=== PATIENT | female | born 2000 | race Caucasian/White ===

== ENCOUNTER → 2019-03-26 22:00 | Observation (INO) ==
[2019-03-26 17:21] LABS: Amphetamine Screen,Urine Negative ng/mL (Cutoff=1000); Barbiturate Screen,Urine Negative ng/mL (Cutoff=200); Benzodiazepines Screen,Urine Negative ng/mL (Cutoff=200); Cannabinoid Screen,Urine Positive ng/mL (Cutoff = 50); Cocaine Screen,Urine Negative ng/mL (Cutoff= 300); Opiate Screen,Urine Negative ng/mL (Cutoff=300); Phencyclidine Screen,Urine Negative ng/mL (Cutoff=25)
[2019-03-26 17:45] LABS: Bilirubin,Urine Negative (Negative); Blood,Urine Negative (Negative); Clarity,Urine Clear (Clear); Color,Urine Yellow (Yellow); Glucose,Urine (UA) Normal (Normal); Ketones,Urine 15 mg/dL (Negative); Leukocyte Esterase,Urine Small (Negative); Nitrite,Urine Negative (Negative); Protein,Urine Negative (Neg-Trace); Specific Gravity,Urine 1.027 (1.010-1.025); Urobilinogen,Urine Normal (Normal)
[2019-03-26 17:46] LABS: Bacteria,Urine Moderate per hpf (None-Few); Squamous Epithelial Cell,Urine Moderate per lpf (None-Few)
[2019-03-26 20:21] LABS: Basophils % 0.1 %; Eosinophils % 0.1 %; Hematocrit 34.6 % (35.3-44.9); Hemoglobin 11.7 g/dL (11.5-15.4); Immature Granulocytes % 0.9 % (0-4); Lymphocytes # 2.9 K/mcL (0.6-4.6); Lymphocytes % 20.4 %; Mean Corpuscular HGB Conc 33.8 g/dL (31.6-35.5); Mean Corpuscular Hemoglobin 31.1 pg (28.0-33.3); Mean Platelet Volume 11.6 fL (9.4-12.4); Monocytes # 0.8 K/mcL (0.0-1.3); Monocytes % 5.8 %; Neutrophils # 10.2 K/mcL (1.6-8.9); Platelet Count 171 K/mcL (140-400); Red Blood Count 3.76 M/mcL (3.82-4.97); Red Cell Distribution Width 12.6 % (11.5-14.5); Segmented Neutrophils % 72.7 %; White Blood Count 14.1 K/mcL (4.3-11.1)
[~2019-03-26 22:00] MED LIST: Acetaminophen 325 MG TABLET PO ONE; Ringers Solution, Lactated 1,000 ML IVC ONE
--- NOTE | 2019-03-26 22:39 | Discharge Summary ---
Date of Encounter: 03/26/19 Time of Encounter: 23:03 - Discharge Diagnosis (1) 35 weeks gestation of Priority: Primary Status: Acute Comments: Admit to observation for complaint of abdominal pain, low back pain. (2) Abdominal pain affecting Priority: Secondary Status: Acute Comments: Continuous and contraction monitoring. (3) NST (non-stress test) reactive Priority: Secondary Status: Acute Comments: FHR 120bpm, moderate variability, +15x15 accels. Fetus extremely active, periods of broken tracing due to movement. - Discharge Medications Allergies/Adverse Reactions: Allergy/AdvReac Type Severity Reaction Status Date / Time No Known Allergies Allergy Verified 03/26/19 16:20 Data Procedures and tests throughout hospitalization: Laboratory Tests 03/26/19 03/26/19 03/26/19 16:07 16:20 19:23 WBC 14.1 H RBC 3.76 L Hgb 11.7 Hct 34.6 L MCV 92.0 MCH 31.1 MCHC 33.8 RDW 12.6 Plt Count 171 MPV 11.6 Immature Gran % 0.9 Seg Neutrophils % 72.7 Lymphocytes % 20.4 Monocytes % 5.8 Eosinophils % 0.1 Basophils % 0.1 Neutrophils # 10.2 H Lymphocytes # 2.9 Monocytes # 0.8 Eosinophils # 0.0 Basophils # 0.0 Urine Color Yellow Urine Clarity Clear Urine pH 6.0 Ur Specific [place] 1.027 H Urine Protein Negative Urine Glucose (UA) Normal Urine Ketones 15 H Urine Blood Negative Urine Nitrite Negative Urine Bilirubin Negative Urine Urobilinogen Normal Ur Leukocyte Esterase Small H Urine Microscopic WBC 5-15 H Ur Squamous Epith Cells Moderate H Urine Bacteria Moderate H Ur Culture Indicated? YES A Urine Opiates Screen Negative Ur Buprenorphine Scrn Negative Ur Barbiturates Screen Negative Ur Phencyclidine Scrn Negative Ur Amphetamines Screen Negative U Benzodiazepines Scrn Negative Urine Cocaine Screen Negative U Marijuana (THC) Screen Positive H Ur Drug Screen Interp See Below Labs on day of discharge: Labs from last 24 hours 03/26/19 03/26/19 03/26/19 19:23 16:20 16:07 WBC 14.1 H RBC 3.76 L Hgb 11.7 Hct 34.6 L MCV 92.0 MCH 31.1 MCHC 33.8 RDW 12.6 Plt Count 171 MPV 11.6 Immature Gran % 0.9 Seg Neutrophils % 72.7 Lymphocytes % 20.4 Monocytes % 5.8 Eosinophils % 0.1 Basophils % 0.1 Neutrophils # 10.2 H Lymphocytes # 2.9 Monocytes # 0.8 Eosinophils # 0.0 Basophils # 0.0 Urine Color Yellow Urine Clarity Clear Urine pH 6.0 Ur Specific [place] 1.027 H Urine Protein Negative Urine Glucose (UA) Normal Urine Ketones 15 H Urine Blood Negative Urine Nitrite Negative Urine Bilirubin Negative Urine Urobilinogen Normal Ur Leukocyte Esterase Small H Urine Microscopic WBC 5-15 H Ur Squamous Epith Cells Moderate H Urine Bacteria Moderate H Ur Culture Indicated? YES A Urine Opiates Screen Negative Ur Buprenorphine Scrn Negative Ur Barbiturates Screen Negative Ur Phencyclidine Scrn Negative Ur Amphetamines Screen Negative U Benzodiazepines Scrn Negative Urine Cocaine Screen Negative U Marijuana (THC) Screen Positive H Ur Drug Screen Interp See Below Preliminary micro results at discharge 03/26/19 16:20 Urine Culture - Preliminary Urine,Clean Catch Culture is incubating. Date of admission: 03/26/19 16:01 Discharging clinician: Didi Norris Anticipated date of discharge: 03/26/19 - Patient Status Disposition: Home, Self-Care Condition: Good Functional capacity at discharge: independent ambulation Overall status at discharge: patient is progressing back to baseline - Discharge Instructions Additional Instructions: LABOR AND DELIVERY DISCHARGE INSTRUCTIONS Signs and Symptoms to be Reported to your Doctor Immediately: * Sudden gush, continuous or intermittent lead of fluid from vagina (note the time of gush and color of fluid) * Onset of bright red vaginal bleeding with or without pain (if you had a vaginal exam during this visit you may notice some dark red spotting. This is normal.) * Contractions that are 5 minutes apart (from the beginning of one contraction to the beginning of the next) and last 45-60 seonds; contractions that you can no longer walk, talk or laugh through. * A change in the baby's activity. This could be an increase or decrease in activity. * Severe headache which does not go away with tylenol. * Sudden swelling in the face, hands, arms and/or legs. * Upper abdominal pain - sometimes associated with heartburn or nausea and is not relieved by Maalox, Mylanta or Tums. * Kick Counts __ One hour after a meal, lay down on one side in a quiet place. Count the number of time the baby moves during an hour. If less than 6 movements, notify your physician Diet: *Force fluids, 8 to 10 tall glasses of fluid per day - may include popsicles and jello *Limit caffeine - this includes chocolate, coffee, tea, any soft drink containing such as all reynaldo, Waldemar Yellow and Mountain Dew - Diet and Activity Activity: resume usual activities as tolerated Diet: regular diet Hospital Course ARBITRATOR Hospital course: Patient arrived with complaints of possible contractions and lower abdominal pain. She reports positive movement, denies vaginal bleeding and fluid leakage. She denies dysuria but does complain of frequency. There is slight CVA tenderness on the left. UA returns with Spec [place] of 1.027, 5-15 WBC. Due to patient symptoms, CBC collected. Returned with WBC count of 14.1, otherwise normal. Slightly elevated temp of 100.4 was noted during stay that resolved with Tylenol and remained normal >4 hrs after Tylenol dose. Patient is to follow up with OB provider as scheduled next week as scheduled for routine care. She is instructed on labor precautions and should return or call if she spikes a temp. Time Attestation: Total time spent providing and/or coordinating discharge services: Time Spent: Less than 30 minutes Exam - Constitutional General appearance IM: A&O X 3, no acute distress - Respiratory Respiratory exam: Present: CTAB. Absent: respiratory distress - Cardiovascular Cardiovascular exam IM: Present: RRR, +S1, +S2. Absent: irregular rhythm - GI/Abdominal GI/Abdominal exam IM: normal bowel sounds, soft - Rectal Rectal exam: deferred - Extremities Exam Extremities exam IM: Present: full ROM, normal capillary refill, normal inspection. Absent: calf tenderness - Neurological Exam Neurological exam: alert, normal gait, oriented X3 - VTE Reasons for not Prescribing Prophylaxis: Treatment not Indicated - Low risk for VTE
== END | disposition home or self-care (01) ==
LOC: 1NENULAB
PROVIDERS: ADMIT Advanced Practice Midwife; ATTEND Advanced Practice Midwife

== ENCOUNTER 2019-04-24 05:51 | Inpatient (IN) ==
[2019-04-24] MEDS ORDERED: miSOPROStol 25 MCG TABLET PO PRN (07:09)
[2019-04-24] MEDS ORDERED: Lidocaine 1% 20 ML MDV INFILT PRN (07:21)
[2019-04-24] MEDS ORDERED: *HR* Nalbuphine 10 MG/ML AMPUL IVP PRN (07:21)
[2019-04-24] MEDS ORDERED: Metoclopramide 10 MG/2 ML VIAL IVP PRN (07:21)
[2019-04-24] MEDS ORDERED: Naloxone 0.4 MG/ML INJ IVP PRN ×2 (07:21→10:34)
[2019-04-24] MEDS ORDERED: Famotidine 20 MG/2 ML VIAL IVP PRN (07:21)
[2019-04-24] MEDS ORDERED: Ringers Solution, Lactated 1,000 ML IVC SCH (07:30)
[2019-04-24 08:06] LABS: Basophils % 0.3 %; Eosinophils # 0.1 K/mcL (0.0-0.6); Eosinophils % 0.4 %; Hematocrit 36.1 % (35.3-44.9); Hemoglobin 12.4 g/dL (11.5-15.4); Immature Granulocytes % 0.5 % (0-4); Lymphocytes # 3.6 K/mcL (0.6-4.6); Mean Corpuscular HGB Conc 34.3 g/dL (31.6-35.5); Mean Corpuscular Hemoglobin 31.3 pg (28.0-33.3); Mean Corpuscular Volume 91.2 fL (83.0-100.0); Mean Platelet Volume 12.1 fL (9.4-12.4); Monocytes # 0.8 K/mcL (0.0-1.3); Monocytes % 5.6 %; Neutrophils # 9.3 K/mcL (1.6-8.9); Platelet Count 201 K/mcL (140-400); Red Blood Count 3.96 M/mcL (3.82-4.97); Red Cell Distribution Width 12.6 % (11.5-14.5); Segmented Neutrophils % 67.2 %; White Blood Count 13.9 K/mcL (4.3-11.1)
[2019-04-24 09:06] LABS: Amphetamine Screen,Urine Negative ng/mL (Cutoff=1000); Barbiturate Screen,Urine Negative ng/mL (Cutoff=200); Benzodiazepines Screen,Urine Negative ng/mL (Cutoff=200); Cannabinoid Screen,Urine Positive ng/mL (Cutoff = 50); Cocaine Screen,Urine Negative ng/mL (Cutoff= 300); Opiate Screen,Urine Negative ng/mL (Cutoff=300); Phencyclidine Screen,Urine Negative ng/mL (Cutoff=25)
--- NOTE | 2019-04-24 09:45 | OB/GYN History & Physical ---
Date of Encounter: 04/24/19 Time of Encounter: 09:42 Assessment and Plan (1) 39 weeks gestation of Current visit: Yes Status: Acute (2) Decreased movement Current visit: Yes Status: Acute Admit for IOL. Cytotec given. Plan for fishman balloon. Epidural if requested. Anticipate . Qualifiers: Fetus number: single or unspecified fetus Trimester: third trimester Qualified Code(s): O36.8130 - Decreased movements, third trimester, not applicable or unspecified History of Present Illness Chief complaint: IOL HPI: Ms. Hutchins is a 18 year old female presenting at 39w1d for elective IOL due to decreased movement and maternal discomfort. She denies any other complaints this am. This has been uncomplicated and she has had routine care with the midwives. A positive Rubella immune Serologies negative GBS negative. Past Med Surg Social Fam HX - Past Medical History Medical history: no medical history Psychiatric history: anxiety, depression - Past Surgical History Surgical History: non-contributory Additional surgical history: mole removed on neck - Social History Smoking Status: Former smoker Smokeless Tobacco Status: No Alcohol use: none Drug use: marijuana - Family History Maternal Grandmother Hx Family Cardiac Disorders: No Hx Family Respiratory Disorders: No Hx Family Cancer: No Hx Family GI Disorders: No Hx Family Endocrine Disorder: Yes (DIABETES) Hx Family Neuromuscular Disorders: No Hx Family Neurologic Disorders: No Hx Family HEENT Disorders: No Hx Family Autoimmune Disorders: No Obstetrical History - Pregnancies : 1 Medications and Allergies Pnv95/Ferrous Fumarate/FA [ Vitamin Tablet] 1 each PO DAILY 04/11/19 [History] Allergy/AdvReac Type Severity Reaction Status Date / Time No Known Allergies Allergy Verified 04/24/19 06:22 Review of System OB All systems PM: reviewed and no additional remarkable complaints except as s tated Exam - Constitutional Constitutional: well developed, well nourished, no acute distress - HEENT HEENT: Mucus Membranes Moist - Neck Neck exam: normal inspection - Lungs Respiratory exam: CTAB - Cardiovascular Cardiovascular exam: RRR - Abdomen Abdomen: Present: gravid, non tender - Extremities Extremities exam: pedal edema (mild bilaterally) - Vulva Vulva: bilateral: normal - Anus/Rectum Anus/Rectum: Present: normal perianal skin Results Result Diagrams: 04/24/19 07:45 Abnormal lab results WBC 13.9 K/mcL (4.3-11.1) H 04/24/19 07:45 Neutrophils # 9.3 K/mcL (1.6-8.9) H 04/24/19 07:45 U Marijuana (THC) Screen Positive ng/mL (Cutoff = 50) H 04/24/19 07:45 All other labs normal. - VTE Reasons for not Prescribing Prophylaxis: Treatment not Indicated - Low risk for VTE
[2019-04-24] MEDS ORDERED: Ropivacaine/PF 0.2% 20 ML VIAL EP ONE (10:34)
[2019-04-24] MEDS ORDERED: EPHEDrine 50 MG/ML VIAL IVP PRN (10:34)
[2019-04-24] MEDS ORDERED: Ondansetron 4 MG/2 ML VIAL IVP PRN (10:34)
[2019-04-24] MEDS ORDERED: *HR* FentaNYL (PF) 100 MCG/2 ML VIAL EP ONE (10:34)
[2019-04-24] MEDS ORDERED: Epidural Premix (fent/bupiv) 110 ML EP SCH (10:45)
--- NOTE | 2019-04-24 10:48 | OB Labor Progress Note ---
Date of Encounter: 04/24/19 Time of Encounter: 10:46 Labor Progress Note - Subjective Subjective: Pt reports mild cramping. No other complaints. - Cervix Cervix: 3/80/-2 - Heart Tones Heart Tones: Category I - [place]: Irregular UC - Interventions Interventions: Sainz balloon placed above cervix using sterile technique. Balloon inflated with 60ml sterile water. Pt tolerated well. - Plan Plan: Continue to monitor. Will augment with pitocin if needed. AROM when able. Epidural if and when requested. Anticipate .
--- NOTE | 2019-04-24 11:17 | Anesthesia Evaluation PreOp ---
Date of Encounter: 04/24/19 Time of Encounter: 10:55 - Past History Planned Operation: SAWYER Cardiac History: Denies any Significant Hx Pulmonary History: Denies Any Significant HX CHEST PAINTING LEADER History: Denies Any Significant HX Other Medical History: Other (anxiety) Anesthesia History: No Prior Anesthetic Complications, Past Anesthesia ([place] teeth extraction, mole removal) : Yes Alcohol Use: none Drug use: marijuana Medications and Allergies Pnv95/Ferrous Fumarate/FA [ Vitamin Tablet] 1 each PO DAILY 04/11/19 [History] Allergy/AdvReac Type Severity Reaction Status Date / Time No Known Allergies Allergy Verified 04/24/19 06:22 - Meds/Allergy Pre-op Review Medications Reviewed: Yes Allergies Reviewed: Yes Beta Blockers on Current Med List: No Anesthesia Results - Labs 04/24/19 07:45 Anesthesia Exam BP 132/90 P 105 R 16 T 97.4 Height: 5'4" Weight: 109.8kg NPO (# of Hours): 6 Pain Scale: 3 Pain Scale Used: Numeric (1 - 10) - HEENT Pupil (Motor): Pupils equal Mallampati: II Teeth: Normal Oral Opening: Greater than 3 - CHEST PAINTING LEADER LOC: Oriented CHEST PAINTING LEADER Motor: Normal RUE, Normal LUE, Normal RLE, Normal LLE, Normal Face CHEST PAINTING LEADER Sensory: Normal: RUE, LUE, RLE, LLE, Face - Cardiac Rhythm: Regular Murmur: None JVD: No Carotid Bruit: No - Pulmonary Breath Sounds: bilateral Clear Respiratory Effort: Symmetrical Anesthesia Assess/Plan ASA Score: 2 Level of consciousness: Cooperative, Oriented, Tranquil Anesthetic Plan: Epidural Autologous Blood: No Monitoring Plan: Standard Monitors Recovery Plan: Other
--- NOTE | 2019-04-24 13:05 | OB Labor Progress Note ---
Date of Encounter: 04/24/19 Time of Encounter: 13:03 Labor Progress Note - Subjective Subjective: Pt reports pain is mild with contractions. - Cervix Cervix: 5-6/80/-1 - Heart Tones Heart Tones: Category I - [place]: irregular UC - Interventions Interventions: AROM for moderate amount clear fluid. IUPC and FSE placed due to difficulty getting continuous tracing with external monitors. - Plan Physician notified: Yes Physician notified details: Dr. Alexander aware of AROM Plan: Continue to monitor. Consider pitocin augmentation if needed. Epidural if desires. Anticipate .
[2019-04-24] MEDS ORDERED: *HR* FentaNYL (PF) 100 MCG/2 ML VIAL ONE (14:26)
[2019-04-24] MEDS ORDERED: EPHEDrine 50 MG/ML VIAL ONE (15:29)
--- NOTE | 2019-04-24 16:00 | Anesthesia Procedures ---
Date of Encounter: 04/24/19 Time of Encounter: 14:58 Procedures: Anesthesia - Epidural/Spinal Patient ID/Chart reviewed: Yes Patient examined: Yes OB Eval: Gestational age: 39.1 OB Eval: : 1 OB Eval: Hx Para: 0 OB Eval: Dilated at (cm): 6 OB Eval: Contractions: Non-stressed pattern Consent Obtained: Yes Supplemental Oxygen: None/Room Air Site Prep: Aseptic Technique, Sterile prep and drape, Povidone-Iodine 1% Patient position: upright Local Anesthetic: Lidocaine 1% Amount of Local Anesthetic used: 3 Touhy Needle Gauge: 18 Touhy Needle Depth (cm): 7 Catheter Depth at Skin (cm): 14 Test Dose (1.5% Lido + Epi): Volume given (mls): 3 Test Dose Result: Negative Loading Dose: Fentanyl (mcg): 100 Loading Dose: Other: Ropivicaine 0.1% 5ml, 3ml normal saline Loading Dose Administered: Thru Catheter Infusion Med: 0.125% Bupivacaine w/ 2 mcg/ml Fentanyl Infusion Rate (mls/hr): [address]: Tegaderm, Tape Interspace Used: L3-L4 Loss of Resistance (ANDERS): Yes Blood: No CSF: No Paresthesia: No Procedure: SAWYER placed 1st pass in upright position. ANDERS achieved with normal saline. Catheter threaded with ease to 14cm at the skin. Test dose negative. Pt stated comfort following epidural bolus dose administration. Pt blood pressure dropped following partial bolus to 77/56 and patient became nauseated. Ephedrine 10mg IV administered, followed 2 minutes later by neosynephrine 100mcg. Blood pressure normalized and nausea subsided. Vitals + FHT's: 1458 BP 137/95 P 111 R 18 1530 BP 127/83 P 102 R 16 FHT 150s
[2019-04-24] MEDS ORDERED: Oxytocin 20 units/ LR 1000 mL 20 UNIT/1,000 ML BAG IVC SCH ×2 (17:30→23:56)
--- NOTE | 2019-04-24 21:32 | OB/GYN Procedure Note ---
Delivery - Delivery Date: 04/24/19 Provider: Kareen Peoples Intrapartum events: none Delivery induction: fishman, misoprostol Delivery augmentation: rupture of membranes, pitocin Delivery monitor: internal FHT, internal uterine Anesthesia: epidural Quantitated Blood Loss: 300 - (s) A Infant Delivery Date: 04/24/19 Delivery Time: 21:00 Presentation: vertex Position: OA Route of delivery: Gender: Male Viability: Viable Pounds: 7 Ounces: 7 Weight Gram: 3.375 kg at 1 minute: 8 at 5 mins: 9 Shoulder Dystocia: not encountered Specimens collected: cord blood Placenta: spontaneous Cord: 3 umbilical vessels, other (marginal cord insertion) - Repair Episiotomy: none Laceration Description: Vaginal (right vaginal wall) - Complications Delivery complications: none Delivery comments: Pt presented for IOL and progressed normally to over intact perineum for viable male "Catr[place]" weighing 7lbs 7oz with apgars 8 at one minute and 9 at five minutes. After pulsations ceased the cord was clamped and cut and the placenta delivered spontaneous and intact. A right vaginal laceration was repaired with 2-0 monocryl. EBL 300ml. Mother and baby stable in kangaroo care following . - Disposition Mom disposition: stable in LDR disposition: stable in LDR
[2019-04-24] MEDS ORDERED: Lanolin 7 G OINT...G. TP PRN (23:56)
[2019-04-24] MEDS ORDERED: Benzocaine/Menthol 56 GM AEROSOL SPRAY TP PRN (23:56)
[2019-04-24] MEDS ORDERED: Acetaminophen 325 MG TABLET PO PRN (23:56)
[2019-04-24] MEDS ORDERED: Measles/Mumps/Rubella Vacc 0.5 ML VIAL SQ PRN (23:56)
[2019-04-25] MEDS: Ibuprofen 600 MG TABLET PO PRN ×3 (01:03→22:21)
[2019-04-25] MEDS: Prenatal Vit/FA 1 EACH TABLET PO SCH (08:53)
--- NOTE | 2019-04-25 11:43 | OB/GYN Progress Note ---
Date of Encounter: 04/25/19 Time of Encounter: 11:41 - Assessment and Plan (1) Status post vaginal delivery Current Visit: Yes Status: Acute Routine PP care (2) Skin yeast infection Current Visit: Yes Status: Acute Nystatin powder ordered to treat. She is to use tid and rinse prior to placing baby to the breast Subjective - Subjective Principal diagnosis: s/p vaginal delivery Patient reports: appetite normal, voiding normally, pain well controlled, ambulating normally Jenkins: doing well, nursing well Objective - Latest Vital Signs Latest vital signs: Vital Signs Temp Pulse Resp BP Pulse Ox 04/25/19 10:58 98.1 F 98 14 120/85 99 04/25/19 02:00 98.4 F 94 16 123/78 98 04/25/19 00:45 99 F 100 16 120/77 97 04/24/19 23:45 98.4 F 100 16 132/85 98 Intake and Output 04/24/19 04/25/19 04/25/19 23:59 07:59 15:59 Intake Total 0 / 0 Output Total 300 / 300 800 / 1400 600 / 1400 Balance -300 / -300 -800 / -1400 -600 / -1400 Intake: Oral 0 / 0 Output: Urine 800 / 1400 600 / 1400 Estimated Blood Loss 300 / 300 - Exam Lungs: bilateral: normal Chest: Normal S1, Normal S2 Extremities: Present: normal. Absent: tenderness Abdomen: Present: normal appearance Uterus: Present: normal, firm Comments: Under right breast is an erythematous painful rash that the patient reports is puritic
[2019-04-25] MEDS ORDERED: Nystatin POWDER 30 GM BOTTLE TP SCH (11:45)
[2019-04-26] MEDS: Ibuprofen 600 MG TABLET PO PRN (08:45)
[2019-04-26] MEDS: Prenatal Vit/FA 1 EACH TABLET PO SCH (08:46)
--- NOTE | 2019-04-26 09:26 | Discharge Summary ---
Date of Encounter: 04/26/19 Time of Encounter: 09:23 - Discharge Diagnosis (1) Skin yeast infection Priority: Secondary Status: Acute Comments: Continue on nystatin (2) Status post vaginal delivery Priority: Primary Status: Acute Comments: Stable, meeting all PP milestones, pain well managed, bleeding minimal, breast feeding, desires discharge - Discharge Medications Prescriptions: New Nystatin POWDER [Nystop] 1 appl TP TID #1 bottle Acetaminophen [Tylenol] 650 mg PO Q6H PRN tablet PRN Reason: Mild Pain Ibuprofen [Motrin] 600 mg PO Q6H PRN #60 tablet PRN Reason: Cramping Benzocaine/Menthol Donora [Dermoplast Donora] 1 appl TP QID PRN aerosol PRN Reason: See Comments Docusate [Colace] 100 mg PO BID #30 capsule Lanolin [Lansinoh] 1 appl TP Q4HR PRN oint...g. PRN Reason: Continued Pnv95/Ferrous Fumarate/FA [ Vitamin Tablet] 1 each PO DAILY Home Medications: Pnv95/Ferrous Fumarate/FA [ Vitamin Tablet] 1 each PO DAILY 04/11/19 [History] Acetaminophen [Tylenol] 650 mg PO Q6H PRN tablet 04/26/19 [Rx] Benzocaine/Menthol Donora [Dermoplast Donora] 1 appl TP QID PRN aerosol 04/26/19 [Rx] Breast Pump [BREAST PUMP] 1 each .ROUTE AD #1 each 04/26/19 [Rx] Docusate [Colace] 100 mg PO BID #30 capsule 04/26/19 [Rx] Ibuprofen [Motrin] 600 mg PO Q6H PRN #60 tablet 04/26/19 [Rx] Lanolin [Lansinoh] 1 appl TP Q4HR PRN oint...g. 04/26/19 [Rx] Nystatin POWDER [Nystop] 1 appl TP TID #1 bottle 04/26/19 [Rx] Allergies/Adverse Reactions: Allergy/AdvReac Type Severity Reaction Status Date / Time No Known Allergies Allergy Verified 04/24/19 06:22 Data Procedures and tests throughout hospitalization: Laboratory Tests 04/24/19 04/24/19 07:45 07:45 WBC 13.9 H RBC 3.96 Hgb 12.4 Hct 36.1 MCV 91.2 MCH 31.3 MCHC 34.3 RDW 12.6 Plt Count 201 MPV 12.1 Immature Gran % 0.5 Seg Neutrophils % 67.2 Lymphocytes % 26.0 Monocytes % 5.6 Eosinophils % 0.4 Basophils % 0.3 Neutrophils # 9.3 H Lymphocytes # 3.6 Monocytes # 0.8 Eosinophils # 0.1 Basophils # 0.0 Urine Opiates Screen Negative Ur Buprenorphine Scrn Negative Ur Barbiturates Screen Negative Ur Phencyclidine Scrn Negative Ur Amphetamines Screen Negative U Benzodiazepines Scrn Negative Urine Cocaine Screen Negative U Marijuana (THC) Screen Positive H Ur Drug Screen Interp See Below Date of admission: 04/24/19 05:51 Primary care physician: Vidya Gustafson Consults: 04/24/19 23:56 Consult to Plastic Boat Buffer [CONS] Routine Comment: Vaginal delivery, consult needed Consult to Gear Nicker [CONS] Routine Reason for SW Consult: +THC Discharging clinician: Esther Batista Anticipated date of discharge: 04/26/19 - Patient Status Disposition: Home, Self-Care Condition: Good Functional capacity at discharge: independent ambulation Overall status at discharge: patient is progressing back to baseline - Discharge Instructions Follow Up With: Vidya Gustafson DO [Primary Care Provider] - Kareen Peoples CNM [Non-Partnered Physician] - - Diet and Activity Activity: resume usual activities as tolerated Diet: regular diet Hospital Course Reason for admission: induction of labor, IUP at term Delivery: Episiotomy: none Laceration: vaginal side wall Other procedures: none complications: none Discharge diagnosis: IUP at term delivered [place] baby: male Hospital course: Delivery - Delivery Date: 04/24/19 Provider: Kareen Peoples Intrapartum events: none Delivery induction: fishman, misoprostol Delivery augmentation: rupture of membranes, pitocin Delivery monitor: internal FHT, internal uterine Anesthesia: epidural Quantitated Blood Loss: 300 - (s) Infant A Delivery Date: 04/24/19 Infant Delivery Time: 21:00 Presentation: vertex Position: OA Route of delivery: Gender: Male Viability: Viable Pounds: 7 Ounces: 7 Weight Gram: 3.375 kg at 1 minute: 8 at 5 mins: 9 Shoulder Dystocia: not encountered Specimens collected: cord blood Placenta: spontaneous Cord: 3 umbilical vessels, other (marginal cord insertion) - Repair Episiotomy: none Laceration Description: Vaginal (right vaginal wall) - Complications Delivery complications: none Delivery comments: Pt presented for IOL and progressed normally to over intact perineum for viable male "Catr[place]" weighing 7lbs 7oz with apgars 8 at one minute and 9 at five minutes. After pulsations ceased the cord was clamped and cut and the placenta delivered spontaneous and intact. A right vaginal laceration was repaired with 2-0 monocryl. EBL 300ml. Mother and baby stable in kangaroo care following . - Disposition Mom disposition: stable in PP and appropriate for discharge Time Attestation: Total time spent providing and/or coordinating discharge services: Time Spent: Less than 30 minutes Exam - Constitutional Vitals: Temp Pulse Resp BP Pulse Ox 98.5 F 107 16 133/87 97 04/25/19 22:30 04/25/19 22:30 04/25/19 22:30 04/25/19 22:30 04/25/19 22:30 General appearance IM: A&O X 3 - Respiratory Respiratory exam: Present: CTAB - Cardiovascular Cardiovascular exam IM: Present: RRR - GI/Abdominal GI/Abdominal exam IM: soft - Uterine Tone: Firm Uterus Position: At Umbilicus - Extremities Exam Extremities exam IM: Present: normal capillary refill, normal inspection - Neurological Exam Neurological exam: normal gait, oriented X3 - Psychiatric Additional comments: reports good mood - Skin Additional comments: area under right breast improving per pt. remains slightly reddened
[2019-04-26 09:38] VITALS: BP 116/73
== END 2019-04-26 11:44 | disposition home or self-care (01) | DRG 560 ==
LOC: 1NENULAB 05:51 → 1NENUOBS 04-25 00:28
PROVIDERS: ADMIT Registered Nurse; ATTEND Registered Nurse

== ENCOUNTER → 2020-12-13 19:40 | Observation (INO) ==
[2020-12-13 15:36] LABS: Bilirubin,Urine Negative (Negative); Blood,Urine Moderate (Negative); Clarity,Urine Ex.Turbid (Clear); Color,Urine Red (Yellow); Glucose,Urine (UA) Normal (Normal); Ketones,Urine Trace mg/dL (Negative); Leukocyte Esterase,Urine Negative (Negative); Nitrite,Urine Negative (Negative); PH,Urine 6.5 pH Units (5.0-8.0); Protein,Urine 70 mg/dL (Neg-Trace); Specific Gravity,Urine 1.029 (1.010-1.025); Urobilinogen,Urine Normal (Normal)
[2020-12-13 17:08] LABS: Basophils # 0.1 K/mcL (0.0-0.2); Basophils % 0.4 %; Eosinophils # 0.1 K/mcL (0.0-0.6); Eosinophils % 0.5 %; Hematocrit 37.9 % (35.3-44.9); Hemoglobin 12.4 g/dL (11.5-15.4); Immature Granulocytes % 1.1 % (0-4); Lymphocytes % 20.5 %; Mean Corpuscular HGB Conc 32.7 g/dL (31.6-35.5); Mean Corpuscular Hemoglobin 30.2 pg (28.0-33.3); Mean Corpuscular Volume 92.2 fL (83.0-100.0); Mean Platelet Volume 10.8 fL (9.4-12.4); Monocytes # 0.8 K/mcL (0.0-1.3); Monocytes % 5.1 %; Neutrophils # 10.6 K/mcL (1.6-8.9); Platelet Count 217 K/mcL (140-400); Red Blood Count 4.11 M/mcL (3.82-4.97); Red Cell Distribution Width 13.1 % (11.5-14.5); Segmented Neutrophils % 72.4 %; White Blood Count 14.6 K/mcL (4.3-11.1)
[2020-12-13 17:24] LABS: Alanine Aminotransferase 8 Units/L (7-52); Albumin 3.5 g/dL (3.5-5.7); Albumin/Globulin Ratio 1.1 (1.1-2.2); Alkaline Phosphatase 102 Units/L (34-104); Aspartate Amino Transferase 12 Units/L (13-39); BUN/Creatinine Ratio 13 (6-26); Bilirubin,Total 0.3 mg/dL (0.3-1.0); Blood Urea Nitrogen 8 mg/dL (6-20); Calcium 8.8 mg/dL (8.6-10.3); Carbon Dioxide 23 mEq/L (23-29); Chloride 106 mEq/L (98-107); Globulin 3.1 g/dL (2.4-3.5); Glucose 80 mg/dL (70-105); Osmolality,Calculated 281 (280-300); Potassium 4.1 mEq/L (3.5-5.1); Sodium 137 mEq/L (136-145); Total Protein 6.6 g/dL (6.4-8.9); eGFR For African Americans > 60 (> 60); eGFR For Non-African Americans > 60 (> 60)
== END | disposition home or self-care (01) ==
LOC: 1NENULAB
PROVIDERS: ADMIT Registered Nurse; ATTEND Registered Nurse

== ENCOUNTER 2020-12-31 18:01 | Inpatient (IN) ==
[~2020-12-31 18:01] MED LIST changes: +*HR* Nalbuphine 10 MG/ML AMPUL IV PRN; -Acetaminophen 325 MG TABLET PO ONE; +Famotidine 20 MG/2 ML VIAL IVP PRN; +Lidocaine 1% 20 ML MDV INFILT PRN; +Metoclopramide 10 MG/2 ML VIAL IVP PRN; +Naloxone 0.4 MG/ML INJ IVP PRN; +Ondansetron 4 MG/2 ML VIAL IVP PRN; -Ringers Solution, Lactated 1,000 ML IVC ONE
[2020-12-31 18:04] LABS: Basophils % 0.2 %; Eosinophils # 0.1 K/mcL (0.0-0.6); Eosinophils % 0.3 %; Hematocrit 36.2 % (35.3-44.9); Hemoglobin 12.1 g/dL (11.5-15.4); Immature Granulocytes % 0.9 % (0-4); Lymphocytes # 3.4 K/mcL (0.6-4.6); Lymphocytes % 21.5 %; Mean Corpuscular HGB Conc 33.4 g/dL (31.6-35.5); Mean Corpuscular Hemoglobin 30.3 pg (28.0-33.3); Mean Corpuscular Volume 90.7 fL (83.0-100.0); Mean Platelet Volume 11.2 fL (9.4-12.4); Monocytes # 0.6 K/mcL (0.0-1.3); Monocytes % 3.8 %; Neutrophils # 11.7 K/mcL (1.6-8.9); Platelet Count 238 K/mcL (140-400); Red Blood Count 3.99 M/mcL (3.82-4.97); Red Cell Distribution Width 13.2 % (11.5-14.5); Segmented Neutrophils % 73.3 %
[2020-12-31] MEDS: miSOPROStoL 25 MCG TABLET PO PRN ×2 (18:08→22:08)
[2020-12-31 18:15] LABS: Amphetamine Screen,Urine Negative ng/mL (Cutoff=1000); Barbiturate Screen,Urine Negative ng/mL (Cutoff=200); Benzodiazepines Screen,Urine Negative ng/mL (Cutoff=200); Cannabinoid Screen,Urine Positive ng/mL (Cutoff = 50); Cocaine Screen,Urine Negative ng/mL (Cutoff= 300); Opiate Screen,Urine Negative ng/mL (Cutoff=300); Phencyclidine Screen,Urine Negative ng/mL (Cutoff=25)
[2020-12-31] MEDS ORDERED: Ropivacaine/PF 0.2% 20 ML VIAL EP ONE (20:42)
[2020-12-31] MEDS ORDERED: *HR* FentaNYL (PF) 100 MCG/2 ML VIAL EP ONE (20:42)
[2020-12-31] MEDS ORDERED: EPHEDrine 50 MG/ML VIAL IVP PRN (20:42)
[2020-12-31] MEDS ORDERED: Epidural Premix (fent/bupiv) 110 ML EP SCH (20:45)
[2020-12-31] MEDS: Ringers Solution, Lactated 1,000 ML IVC SCH (23:34)
[2021-01-01] MEDS ORDERED: *HR* FentaNYL (PF) 100 MCG/2 ML VIAL ONE (01:55)
[2021-01-01] MEDS ORDERED: Ropivacaine/PF 0.2% 20 ML VIAL ONE (01:55)
[2021-01-01] MEDS ORDERED: Oxytocin 20 units/ LR 1000 mL 20 UNIT/1,000 ML BAG IVC SCH ×2 (02:15→10:00)
[2021-01-01] MEDS: Ringers Solution, Lactated 1,000 ML IVC SCH (03:51)
[2021-01-01] MEDS ORDERED: Lanolin 7 G OINT...G. TP PRN (10:00)
[2021-01-01] MEDS ORDERED: *HR* HYDROcodone/Acet 5/325 mg TABLET PO PRN (10:00)
[2021-01-01] MEDS ORDERED: Acetaminophen 325 MG TABLET PO PRN (10:00)
[2021-01-01] MEDS ORDERED: Benzocaine/Menthol 56 GM AEROSOL SPRAY TP PRN (10:00)
[2021-01-01] MEDS: Ibuprofen 600 MG TABLET PO PRN ×2 (16:40→22:08)
[2021-01-01] MEDS: Prenatal Vit/FA 1 EACH TABLET PO SCH (16:44)
[2021-01-02] MEDS: Ibuprofen 600 MG TABLET PO PRN (04:30)
[2021-01-02 08:02] VITALS: BP 106/71
[2021-01-02] MEDS: Prenatal Vit/FA 1 EACH TABLET PO SCH (08:27)
== END 2021-01-02 12:05 | disposition home or self-care (01) | DRG 560 ==
LOC: 1NENULAB → 1NENUOBS 01-01 10:32
PROVIDERS: ADMIT Advanced Practice Midwife; ATTEND Advanced Practice Midwife

== ENCOUNTER → 2022-05-21 16:33 | Observation (INO) ==
[2022-05-21 13:48] LABS: Basophils # 0.1 K/mcL (0.0-0.2); Basophils % 0.4 %; Eosinophils # 0.1 K/mcL (0.0-0.6); Eosinophils % 0.5 %; Hematocrit 35.8 % (35.3-44.9); Immature Granulocytes % 1.4 % (0-4); Lymphocytes # 2.6 K/mcL (0.6-4.6); Lymphocytes % 19.1 %; Mean Corpuscular HGB Conc 33.5 g/dL (31.6-35.5); Mean Corpuscular Hemoglobin 30.9 pg (28.0-33.3); Mean Corpuscular Volume 92.3 fL (83.0-100.0); Mean Platelet Volume 10.9 fL (9.4-12.4); Monocytes # 0.8 K/mcL (0.0-1.3); Monocytes % 5.5 %; Platelet Count 203 K/mcL (140-400); Red Blood Count 3.88 M/mcL (3.82-4.97); Red Cell Distribution Width 12.9 % (11.5-14.5); Segmented Neutrophils % 73.1 %; White Blood Count 13.6 K/mcL (4.3-11.1)
[2022-05-21 14:21] LABS: Bacteria,Urine Few per hpf (None-Few); Bilirubin,Urine Negative (Negative); Blood,Urine Negative (Negative); Clarity,Urine Turbid (Clear); Color,Urine Yellow (Yellow); Glucose,Urine (UA) Normal (Normal); Ketones,Urine Negative (Negative); Leukocyte Esterase,Urine Small (Negative); Mucus,Urine Many per lpf (None-Few); Nitrite,Urine Negative (Negative); PH,Urine 6.5 pH Units (5.0-8.0); Protein,Urine 30 mg/dL (Neg-Trace); RBC,Urine 0-3 per hpf (0-3); Specific Gravity,Urine 1.028 (1.010-1.025); Squamous Epithelial Cell,Urine Many per hpf (None-Few); Urobilinogen,Urine Normal (Normal)
[2022-05-21 14:54] LABS: Candida DNA Not Detected (Not Detect); Gardnerella DNA DETECTED (Not Detect); Trichomonas DNA Not Detected (Not Detect)
== END | disposition home or self-care (01) ==
LOC: 1NENULAB
PROVIDERS: ADMIT Advanced Practice Midwife; ATTEND Advanced Practice Midwife